=== PATIENT | male | born 1970 | race Caucasian/White ===

== ENCOUNTER 2022-10-10 08:35 | Outpatient (CLI) | payer BC, SELFPAY ==
[2022-10-10 10:16] LABS: Albumin* 4.3 g/dL (3.3-5.0); Chloride* 106 mmol/L (96-114); Sodium* 141 mmol/L (135-149)
[2022-10-10 10:18] LABS: Cholesterol* 175 mg/dL (90-199)
[2022-10-10 10:19] LABS: Alanine Aminotransferase* 26 U/L (4-50); Alkaline Phosphatase* 60 U/L (40-150); Aspartate Amino Transferase* 27 U/L (12-35); Bilirubin Total* 0.6 mg/dL (0.1-1.5); Blood Urea Nitrogen* 15 mg/dL (7-30); Carbon Dioxide* 27 mmol/L (20-32); Creatinine* 0.9 mg/dL (0.5-1.5); Estimated Glomerular Filt Rate 102 ml/min; Glucose* 95 mg/dL (60-115); Triglycerides* 96 mg/dL (40-149)
[2022-10-10 10:20] LABS: Calcium* 8.8 mg/dL (8.4-10.6); HDL Cholesterol* 41 mg/dL (>=40); LDL Cholesterol Calculated 115 mg/dL (<100); Potassium* 4.1 mmol/L (3.6-5.1)
[2022-10-10 10:51] LABS: PSA Screen* 0.17 ng/mL (0.10-4.00)
== END 2022-10-10 08:36 | disposition home or self-care (01) ==
LOC: NFLDREF 08:35
PROVIDERS: PCP Family Medicine; Visit Provider Family Medicine
DX: E78.5 Hyperlipidemia, unspecified (principal); Z12.5 Encounter for screening for malignant neoplasm of prostate
CPT/HCPCS: 80053; 80061; 84153

== ENCOUNTER 2023-10-13 07:25 | Outpatient (CLI) | payer BC, SELFPAY | END 2023-10-13 07:26 | disposition home or self-care (01) | LOC: NFLDREF 10-16 11:59 | PROVIDERS: PCP Family Medicine; Visit Provider Family Medicine | DX: E78.5 Hyperlipidemia, unspecified (principal); Z12.5 Encounter for screening for malignant neoplasm of prostate | CPT/HCPCS: 80053; 80061; G0103 ==

== ENCOUNTER 2024-12-26 07:40 | Outpatient (CLI) | payer BC, SELFPAY | END 2024-12-26 07:41 | disposition home or self-care (01) | LOC: NFLDREF 19:53 | PROVIDERS: PCP Family Medicine; Referring Provider Family Medicine; Visit Provider Family Medicine | DX: E78.5 Hyperlipidemia, unspecified (principal); I10 Essential (primary) hypertension; Z12.5 Encounter for screening for malignant neoplasm of prostate | CPT/HCPCS: 80053; 80061; 84484; G0103 ==

== ENCOUNTER 2025-01-10 13:47 | Outpatient (CLI) | payer BC, SELFPAY ==
[2025-01-10] MEDS: PERFLUTREN LIPID MICROSPHERES 2 ML VIAL IVP (14:24)
--- NOTE | 2025-01-10 14:47 | P.STN_ITS ---
Stress Test Note Date Date Seen: 01/10/25 Date of test: 01/10/25 Providers Primary care provider: Anurag Tay Stress test physician: Katya Napoles Stress Test Note Stress test ordered: Stress Echo Indication for test: Chest pain Stress test medicine: Defintong Results discussion: Resting EKG: Sinus rhythm, 76 beats per minute. Flipped T-waves lead V1. Resting blood pressure: 144/89 Stress test: Patient has consented on exercise stress echo and agrees to proceed. Standard Danny protocol on treadmill is followed. Patient did experience some intermittent short lived chest discomfort. He stated right about 5 minutes 59 seconds that he was feeling slight chest pressure was gone by 6 minutes 50 seconds. At 8 minutes 30 seconds seconds it was slightly back and then went away. He was feeling fine in recovery. Noted no arrhythmia, no diagnostic EKG criteria for ischemia. He exercise for duration of 10 minutes 2nd, equivalent to 11.7 Mets. He had a maximum heart rate of 152 beats per minute which was 108% of a calculated target heart rate of 140. Rate pressure p roduct was 27,360. Maximal blood pressure was 180/100. Await echo images to couple this for a full formal diagnostic. Definity was used for visualization of echo images. Impression: Subjective intermittent short-lived chest pressure, objectively negative EKG. Follow up suggested: Will discharge patient to home pending echo reading to couple this for a full formal diagnostic. There were no associated EKG changes in his chest pain was certainly atypical in nature coming and going during the stress test. He was asymptomatic at time of discharge in plan will be to discharge to home awaiting echo images by Cardiology to be read.
[2025-01-10 14:50] VITALS: BP 156/94; PULSE 96
== END 2025-01-10 13:48 | disposition home or self-care (01) ==
LOC: STRESS 13:47
PROVIDERS: PCP Family Medicine; Visit Provider Family Medicine
DX: R07.9 Chest pain, unspecified (principal); R06.09 Other forms of dyspnea
CPT/HCPCS: 93016; 93325; 93351; Q9957